=== PATIENT | female | born 1975 | race American Indian/Alaskan Native ===

== ENCOUNTER 2016-11-25 07:51 | Day surgery (SDC) | payer BC, OTHER ==
[2016-11-25 08:21] VITALS: BMI 38.2
[2016-11-25 08:56] VITALS: RESP 18
[2016-11-25] MEDS ORDERED: Lactated Ringer's 1,000 ML IV ONE (09:16)
[2016-11-25] MEDS ORDERED: Propofol 10 mg/ml Inj (20 ML) ONE (11:11)
[2016-11-25] MEDS ORDERED: Lidocaine 2% MPF (5 ml) Inj ONE (11:11)
[2016-11-25] MEDS ORDERED: Midazolam 2 MG/2 ML VIAL ONE (11:11)
[2016-11-25] MEDS ORDERED: Succinylcholine 200 mg/10 ml Inj IV ONE (11:12)
[2016-11-25] MEDS ORDERED: Phenylephrine 10 mg/ml Inj ONE (11:17)
[2016-11-25] MEDS ORDERED: Dexamethasone 4 mg/1 ml ONE (11:41)
[2016-11-25] MEDS ORDERED: ePHEDrine 50 mg/ml Inj ONE (11:42)
[2016-11-25] MEDS ORDERED: Oxycodone/Acetaminophen 5/325 mg Tab PO PRN (12:44)
[2016-11-25] MEDS ORDERED: HYDROmorphone 0.5 mg/0.5 ml ISec ONE (12:57)
[2016-11-25] MEDS ORDERED: HYDROmorphone 0.5 mg/0.5 ml ISec IVP PRN (13:06)
[2016-11-25] MEDS ORDERED: Lactated Ringer's 1,000 ML IV SCH (13:06)
[2016-11-25 14:59] VITALS: BP 126/66; PULSE 85; TEMP 98; O2SAT 100
--- NOTE | 2016-11-25 15:46 | OP ---
PROCEDURE DATE: 11/25/2016 PREOPERATIVE DIAGNOSES: Abnormal uterine bleeding and fibroid uterus. POSTOPERATIVE DIAGNOSES: Abnormal uterine bleeding and fibroid uterus, pending pathology. SURGEON: Compa Caldwell MD ANESTHESIA: Dr. Sheppard, general anesthesia. PROCEDURE: Hysteroscopy, and dilation and curettage. FINDINGS: Moderate amount of clots and some scant endometrial tissue. ESTIMATED BLOOD LOSS: About 100 mL. DESCRIPTION OF PROCEDURE: With the patient in the dorsal lithotomy position under general anesthesia , patient was prepped and draped in usual sterile manner. A straight catheter was used to empty the bladder after which the anterior lip of the cervix was grasped with single tooth tenaculum, dilated a nd, because of the heavy bleeding, curetted. After this was done, the hysteroscope was placed and th e attempt was made to visualize any polyps; however, nothing was seen but just hyperplastic tissue. Pictures were taken. More D and C was done to obtain more tissue. Estimated blood loss was about 75 mL. Hemostasis was maintained. The patient tolerated the procedure well and was in satisfactory co ndition on the way to recovery room. Compa Caldwell MD cc: 22 TT: 11/25/2016 15:46:26 mt
== END 2016-11-25 15:50 | disposition home or self-care (01) ==
LOC: H.OPSURG 07:51
PROVIDERS: ATTEND Specialist
DX: N93.9 Abnormal uterine and vaginal bleeding, unspecified (principal); D25.9 Leiomyoma of uterus, unspecified
CPT/HCPCS: 58558; 88305; J0330; J1100; J1170; J1885; J2250; J2370; J2405; J2704; J3010; J7030; J7120